=== PATIENT | female | born 1935 | race African-American/Black ===

== ENCOUNTER 2019-08-09 17:51 | Observation (INO) ==
[2019-08-09] MEDS ORDERED: Aspirin 81 MG TAB.CHEW PO ONE (18:02)
[2019-08-09] MEDS ORDERED: GI Cocktail 40 ML EACH PO ONE (18:24)
[2019-08-09 19:36] LABS: Basophils % 0.3 %; Eosinophils # 0.1 K/mcL (0.0-0.6); Eosinophils % 1.3 %; Hematocrit 39.5 % (35.3-44.9); Hemoglobin 12.5 g/dL (11.5-15.4); Immature Granulocytes % 0.7 % (0-4); Lymphocytes # 1.9 K/mcL (0.6-4.6); Lymphocytes % 24.3 %; Mean Corpuscular HGB Conc 31.6 g/dL (31.6-35.5); Mean Corpuscular Volume 85.3 fL (83.0-100.0); Mean Platelet Volume 10.9 fL (9.4-12.4); Monocytes # 0.6 K/mcL (0.0-1.3); Monocytes % 7.3 %; Neutrophils # 5.1 K/mcL (1.6-8.9); Platelet Count 177 K/mcL (140-400); Red Blood Count 4.63 M/mcL (3.82-4.97); Segmented Neutrophils % 66.1 %; White Blood Count 7.7 K/mcL (4.3-11.1)
[2019-08-09 19:38] LABS: Prothrombin Time 11.7 Seconds (9.4-12.1)
[2019-08-09 19:40] LABS: Activated Partial Thrombo Time 31.6 Seconds (26.0-36.0)
[2019-08-09 19:56] LABS: BUN/Creatinine Ratio 17 (6-26); Blood Urea Nitrogen 14 mg/dL (8-23); Calcium 9.8 mg/dL (8.6-10.3); Carbon Dioxide 30 mEq/L (23-29); Chloride 102 mEq/L (98-107); Glucose 83 mg/dL (70-105); Osmolality,Calculated 296 (280-300); Potassium 3.1 mEq/L (3.5-5.1); Sodium 143 mEq/L (136-145); Troponin I < 0.03 ng/mL (< 0.04); eGFR For African Americans > 60 (> 60); eGFR For Non-African Americans > 60 (> 60)
[2019-08-09] MEDS ORDERED: Potassium Chloride Elixir 20 MEQ/15 ML UDC PO ONE (20:23)
[2019-08-10] MEDS ORDERED: Simethicone 80 MG TAB.CHEW PO PRN (00:53)
[2019-08-10] MEDS ORDERED: Nitroglycerin 0.4 MG TAB.SUBL SL PRN (00:54)
[2019-08-10] MEDS ORDERED: Lactulose Oral Soln 20 GM/30 ML UDC PO PRN (00:56)
[2019-08-10] MEDS ORDERED: Ipratropium/Albuterol Neb 3 ML IH PRN (00:56)
[2019-08-10] MEDS ORDERED: *HR* Dextrose 50 % in Water (Syg) 50 ML SYRINGE IVP PRN (01:00)
[2019-08-10] MEDS ORDERED: Dextrose Gel 15 GM/37.5 ML TUBE PO PRN ×2 (01:00)
[2019-08-10] MEDS ORDERED: D5% in Water 1,000 ML IVC PRN (01:00)
[2019-08-10] MEDS ORDERED: traMADol 50 MG TABLET PO PRN (01:18)
[2019-08-10] MEDS ORDERED: Naloxone 0.4 MG/ML INJ IVP PRN (01:18)
[2019-08-10] MEDS ORDERED: Pantoprazole 80 MG in 0.9 % Sodium Chloride 50 ML IVPB ONE (02:00)
[2019-08-10 02:54] LABS: Hematocrit 34.9 % (35.3-44.9); Mean Corpuscular HGB Conc 31.2 g/dL (31.6-35.5); Mean Corpuscular Hemoglobin 26.7 pg (28.0-33.3); Mean Corpuscular Volume 85.5 fL (83.0-100.0); Mean Platelet Volume 11.1 fL (9.4-12.4); Platelet Count 167 K/mcL (140-400); Red Blood Count 4.08 M/mcL (3.82-4.97); White Blood Count 6.5 K/mcL (4.3-11.1)
[2019-08-10 02:55] LABS: Hemoglobin 10.9 g/dL (11.5-15.4)
[2019-08-10 03:07] LABS: Blood Urea Nitrogen 15 mg/dL (8-23); Calcium 8.9 mg/dL (8.6-10.3); Carbon Dioxide 30 mEq/L (23-29); Chloride 103 mEq/L (98-107); Chol/HDL Ratio 2.3 (0-4.9); Cholesterol 122 mg/dL (< 200); Glucose 160 mg/dL (70-105); HDL Cholesterol 52 mg/dL (40-59); LDL Cholesterol,Calculated 47 mg/dL (0-99); Magnesium 1.5 mg/dL (1.6-2.6); Osmolality,Calculated 298 (280-300); Potassium 3.8 mEq/L (3.5-5.1); Sodium 142 mEq/L (136-145); Triglycerides 116 mg/dL (< 150)
[2019-08-10] MEDS ORDERED: Isovue-370 500 ML BOTTLE IVP ONE (03:44)
[2019-08-10 03:54] LABS: BUN/Creatinine Ratio 18 (6-26); eGFR For African Americans > 60 (> 60); eGFR For Non-African Americans > 60 (> 60)
[2019-08-10] MEDS ORDERED: *HR* Heparin 5,000 UNIT/ML VIAL IVP PRN ×2 (05:23)
[2019-08-10] MEDS ORDERED: *HR* Heparin 5,000 UNIT/ML VIAL IVP ONE (05:23)
[2019-08-10 05:54] LABS: Prothrombin Time 11.5 Seconds (9.4-12.1)
[2019-08-10] MEDS: Heparin 25,000 UNIT/250 ML D5W 25,000 UNIT/250 ML IV.SOLN IVC SCH (06:12)
[2019-08-10] MEDS ORDERED: 0.9 % Sodium Chloride 1,000 ML IVC SCH (06:15)
[2019-08-10 07:27] LABS: Estimated Average Glucose 183 mg/dl
[2019-08-10 08:11] LABS: % Iron Saturation 15 % (15-50); Iron 38 mcg/dL (50-170); Transferrin 186 mg/dL (203-362)
[2019-08-10] MEDS ORDERED: Metoprolol XL (24 HR) Succ 50 MG TAB.ER.24H PO SCH (09:00)
[2019-08-10] MEDS: FLUoxetine 20 MG CAPSULE PO SCH (09:27)
[2019-08-10] MEDS: predniSONE 5 MG TABLET PO SCH (09:27)
[2019-08-10] MEDS: Furosemide 40 MG TABLET PO SCH (09:28)
[2019-08-10] MEDS: Insulin LISPRO 300 UNITS/3 ML VIAL SQ SCH ×3 (09:29→17:44)
[2019-08-10] MEDS: Gabapentin 400 MG CAPSULE PO SCH ×4 (09:29→20:56)
[2019-08-10] MEDS: Tolterodine LA (24 HR) 2 MG CAP.ER.24H PO SCH (09:32)
[2019-08-10] MEDS ORDERED: Insulin LISPRO 300 UNITS/3 ML VIAL SQ SCH (21:00)
[2019-08-11 04:50] LABS: Hematocrit 37.9 % (35.3-44.9); Mean Corpuscular HGB Conc 31.7 g/dL (31.6-35.5); Mean Corpuscular Volume 85.4 fL (83.0-100.0); Platelet Count 184 K/mcL (140-400); Red Blood Count 4.44 M/mcL (3.82-4.97); Red Cell Distribution Width 14.1 % (11.5-14.5); White Blood Count 8.2 K/mcL (4.3-11.1)
[2019-08-11 05:12] LABS: BUN/Creatinine Ratio 15 (6-26); Blood Urea Nitrogen 12 mg/dL (8-23); Calcium 9.3 mg/dL (8.6-10.3); Carbon Dioxide 29 mEq/L (23-29); Chloride 100 mEq/L (98-107); Glucose 216 mg/dL (70-105); Osmolality,Calculated 298 (280-300); Potassium 3.5 mEq/L (3.5-5.1); Sodium 141 mEq/L (136-145); eGFR For African Americans > 60 (> 60); eGFR For Non-African Americans > 60 (> 60)
[2019-08-11] MEDS ORDERED: NIFEdipine 10 MG CAPSULE PO ONE (06:47)
[2019-08-11] MEDS: Heparin 25,000 UNIT/250 ML D5W 25,000 UNIT/250 ML IV.SOLN IVC SCH (07:13)
[2019-08-11 08:05] LABS: Magnesium 1.9 mg/dL (1.6-2.6)
[2019-08-11] MEDS: FLUoxetine 20 MG CAPSULE PO SCH (08:57)
[2019-08-11] MEDS: predniSONE 5 MG TABLET PO SCH (08:57)
[2019-08-11] MEDS: Gabapentin 400 MG CAPSULE PO SCH ×2 (08:58→11:57)
[2019-08-11] MEDS: Furosemide 40 MG TABLET PO SCH (08:58)
[2019-08-11] MEDS ORDERED: Aspirin Enteric Coated 81 MG Tablet PO SCH (09:00)
[2019-08-11] MEDS: Insulin LISPRO 300 UNITS/3 ML VIAL SQ SCH ×2 (09:02→12:00)
[2019-08-11] MEDS ORDERED: Apixaban 5 MG TABLET PO SCH (09:30)
[2019-08-11] MEDS ORDERED: Metoprolol XL (24 HR) Succ 50 MG TAB.ER.24H PO SCH (09:30)
[2019-08-11] MEDS: Tolterodine LA (24 HR) 2 MG CAP.ER.24H PO SCH (11:57)
[2019-08-11 11:58] VITALS: BP 171/115
== END 2019-08-11 14:38 | disposition home or self-care (01) ==
LOC: 3ANU 17:51 → EMEROOARM 17:51 → SUATTDRO 20:28 → 3ANU 21:16
PROVIDERS: ADMIT Internal Medicine; ATTEND Family Medicine